=== PATIENT | male | born 1960 | race Caucasian/White ===

== ENCOUNTER 2022-08-18 15:27 | Outpatient (CLI) | payer BC, SELFPAY ==
[2022-08-18 10:00] LABS: Albumin* 4.3 g/dL (3.3-5.0); Chloride* 106 mmol/L (96-114); Potassium* 4.1 mmol/L (3.6-5.1); Sodium* 140 mmol/L (135-149)
[2022-08-18 10:02] LABS: Cholesterol* 157 mg/dL (90-199); Creatinine* 0.8 mg/dL (0.5-1.5); Estimated Glomerular Filt Rate 100 ml/min
[2022-08-18 10:03] LABS: Alanine Aminotransferase* 18 U/L (4-50); Alkaline Phosphatase* 101 U/L (40-150); Aspartate Amino Transferase* 21 U/L (12-35); Bilirubin Total* 0.6 mg/dL (0.1-1.5); Blood Urea Nitrogen* 25 mg/dL (7-30); Carbon Dioxide* 25 mmol/L (20-32); Glucose* 81 mg/dL (60-115); Total Protein* 6.6 g/dL (6.0-8.3); Triglycerides* 98 mg/dL (40-149)
[2022-08-18 10:04] LABS: Calcium* 8.8 mg/dL (8.4-10.6); HDL Cholesterol* 87 mg/dL (>=40); LDL Cholesterol Calculated 50 mg/dL (<100)
[2022-08-18 10:33] LABS: PSA Screen* 2.09 ng/mL (0.10-4.00)
== END 2022-08-18 15:28 | disposition home or self-care (01) ==
PROVIDERS: PCP Surgery; Visit Provider Internal Medicine
DX: I10 Essential (primary) hypertension (principal); Z13.6 Encounter for screening for cardiovascular disorders; Z12.5 Encounter for screening for malignant neoplasm of prostate
CPT/HCPCS: 80053; 80061; 84153

== ENCOUNTER 2023-06-16 17:00 | Outpatient (RCR) | payer BC, SELFPAY | END 2023-08-05 11:12 | disposition home or self-care (01) | PROVIDERS: PCP Surgery; Visit Provider Student in an Organized Health Care Education/Training Program | DX: M54.2 Cervicalgia (principal); M79.2 Neuralgia and neuritis, unspecified; R29.3 Abnormal posture; R53.1 Weakness; Z74.09 Other reduced mobility; Z51.89 Encounter for other specified aftercare | CPT/HCPCS: 97110; 97140; 97162 ==

== ENCOUNTER 2024-12-05 09:38 | Day surgery (SDC) | payer BC, SELFPAY ==
[2024-12-05] VITALS (30 sets, daily range): BP systolic 102–151; BP diastolic 67–105; PULSE 49–90; RESP 12–18; TEMP 36–36.9; O2SAT 94–99; BMI 26.5
--- OUTSIDE RECORDS SUMMARY | 2024-12-05 09:41 | XMS_ITS | Clinical Summary ---
Author Organization [facility] Address [address] [place] [address] Care Team Providers Care Plisse Machine Operator Helper Name Role Phone Elsewhere, Pcp Primary Care Provider Unavailabl e Source Comments Patient records contain information from all sites at [facility]. For routine questions regarding patient records, call [phone] during business hours, M-F 8:00 AM - 5:00 PM Central Time. Record requests for emergency care only can be directed to [phone] at any time.[facility] Allergies No known active allergies Medications * This document contains information received from the source organization and may not represent a complete record from that organization. losartan (COZAAR) 100 mg tablet Take 100 mg by mouth every morning. 8 Active rosuvastatin (CRESTOR) 10 mg tablet Take 10 mg by mouth every morning. 8 Active triamcinolone (KENALOG) 0.1 % cream Apply 1 application topically 2 (two) times a day. Apply to rash of back BID PRN rash/itching for up to two weeks, then 3 days of the week as needed thereafter Active acetaminophen (TYLENOL) 500 mg tablet Take 2 tablets (1,000 mg total) by mouth every 6 (six) hours. 9 Active traMADol (ULTRAM) 50 mg tabletIndication s:Prolonged Acute Pain/Traumatic Injury Take 1 tablet (50 mg total) by mouth every 6 (six) hours as needed for mild pain or score 1-3 of 10 Indications: Prolonged Acute Pain/Traumatic Injury. 30 tablet 9 Active sildenafiL (VIAGRA) 50 mg tablet TK 1 T PO 1 HOUR PRIOR TO INTERCOURSE PRN [address] tablet TAKE 1 TABLET BY MOUTH TWICE DAILY. START MEDICATION AFTER COMPLETING XARELTO 1 Active alendronate (FOSAMAX) 70 mg tablet Take 70 mg by mouth over 168 hr. 3 Active folic acid 1 mg tabletIndication s:Arthritis Inflammatory (HCC) Take 1 tablet (1,000 mcg total) by mouth daily. 90 tablet 3 5 Active methotrexate (TrexalL) 2.5 mg tabletIndication s:Arthritis Inflammatory (HCC) Take 10 tablets (25 mg total) by mouth once a week. 120 tablet 3 5 10/20/19 26 Active omeprazole (PriLOSEC) [address] capsuleIndicatio ns:Arthritis Rheumatoid (HCC) Take 2 capsules (40 mg total) by mouth daily. 180 capsule 3 5 Active ibuprofen 800 mg tabletIndication s:Osteoarthritis Take 1 tablet (800 mg total) by mouth 4 (four) times a day with meals and bedtime. Take with food 360 tablet 3 5 Active upadacitinib (Rinvoq) 15 mg 24 hr tabletIndication s:Arthritis Rheumatoid (HCC) Take 1 tablet (15 mg total) by mouth daily. 90 tablet 1 5 10/20/19 26 Active Active Problems Problem Noted Date Diagnosed Date Arthrodesis Status 11/29/2018 Dysfunction Posterior Tibial Tendon 11/24/2018 Hyperlipidemia 11/24/2018 Hypertension Essential Primary 09/06/2018 Osteoarthritis 09/06/2018 Arthritis Rheumatoid 01/12/2018 Resolved Problems Problem Noted Date Diagnosed Date Resolved Date High Risk Medication 09/06/2018 019 Encounters Date Type Department Care Team Description 10/20/2024 3:30 PM BEAUTY OPERATOR APPRENTICE Telemedicine Division of Rheumatology in [place], [place] [address] [place] [address] Thomas Crawford P.A.-C., M.S. Arthritis Rheumatoid (HCC) (Primary Dx); Arthritis Inflammatory (HCC); Osteoarthritis 09/21/2024 Clinical Communication Division of Rheumatology in [place], [place] [address] [place] [address] Thomas Crawford P.A.-C., M.S. Lab Monitoring 09/19/2024 Refill Division of Rheumatology in [place], [place] [address] [place] [address] Thomas Crawford P.A.-C., M.S. Med Refill from Last 3 Months Family History Medical History Relation Name Comments Leukemia Father jackie Stratton chronic myelomo noytic lewkemia Other cancer Father jackie Stratton blood type. Prostate cancer Father jackie Stratton Ovarian cancer Mother suleman Chowdhury Other cancer Sister 1 hallie 55 unknown Coronary artery disease Sister 2 ivory 60 Hypertension Sister 2 ivory 60 Relation Name Status Comments Father jackie Stratton Mother suleman Chowdhury Sister 1 hallie 55 Sister 2 ivory 60 Social History Tobacco Use Types Packs/Day Years Used Date Smoking Tobacco: Former Cigarettes 1.5 23 0 03/19/1978 - 03/19/2001 Passive Smoke Exposure: Past Smokeless Tobacco: Never Alcohol Use Standard Drinks/Week Comments No 0 (1 standard drink = 0.6 oz pur e alcohol) [facility] [employer] Answer Date Recorded In the past 12 months has e electric, gas, oil, or water [employer] threatened to shut off services in your home? Patient declined 02/16/2024 Humiliation, Afraid, Rape, and Kick questionnair e Answer Date Recorded Within the last year, have y ou been afraid of your partner or ex-partner? No 01/31/2023 Within the last year, have y ou been humiliated or emotionally abused in other ways by your partner or ex-partner? No Within the last year, have y ou been kicked, hit, slapped, or otherwise physically hurt by your partner or ex-partner? No 01/31/2023 Within the last year, have y ou been raped or forced to have any kind of sexual activity by your partner or ex-partner? No 01/31/2023 Social Connection and Isolation Panel [NHANES] A nswer Date Recorded In a typical week, how many times do you talk on the phone with family, friends, or neighbors? Three times a week 01/31/2023 How often do you get togethe r with friends or relatives? Once a week 01/31/2023 How often do you attend chur ch or mandaeism services? Patient declined 01/31/2023 Do you belong to any clubs o r organizations such as latter day groups, unions, fraternal or athletic groups, or school groups? Patient declined 01/31/2023 How often do you attend meet ings of the clubs or organizations you belong to? Patient declined 01/31/2023 Are you , , di vorced, , never , or living with a partner? 01/31/2023 AUDIT-C Answer Date Recorded Q1: How often do you have a drink containing alc ohol? Never 01/31/2023 Average Number of Drinks Not on file 023 Frequency of Binge Drinking Not on file 01/17 Overall Financial Resource Strain (CARDIA) Answe r Date Recorded How hard is it for you to pa y for the very basics like food, housing, medical care, and heating? Not very hard 01/31/2023 [facility] - Occupational Stress Questionnaire Answer Date Recorded Do you feel stress - tense, restless, nervous, or anxious, or unable to sleep at night because your mind is troubled all the time - these days? Patient declined 01/31/2023 Exercise Vital Sign Answer Date Recorde d On average, how many days pe r week do you engage in moderate to strenuous exercise (like a brisk walk)? Patient declined On average, how many minutes do you engage in exercise at this level? Patient declined 02/16/2024 Hunger Vital Sign Answer Date Recorded Within the past 12 months, y ou worried that your food would run out before you got the money to buy more. Patient declined Within the past 12 months, t he food you bought just didn't last and you didn't have money to get more. Patient declined PRAPARE - Transportation Answer Date Re corded In the past 12 months, has l ack of transportation kept you from medical appointments or from getting medications? No 01/19 In the past 12 months, has l ack of transportation kept you from meetings, work, or from getting things needed for daily living? No 02/16/2024 Nutrition Answer Date Recorded On average, how many serving s of fruits and vegetables do you eat per day (serving size is equal to 1 cup or approximately the size of a tennis ball)? 0-2 02/16/2024 Dental Answer Date Recorded Dental: Regular Dentist Yes 02/16/20 Employment Answer Date Recorded Employment status Employed and actively working without restrictions 02/16/2024 Housing Stability Answer Date Recorded What is your living situation today? I have a [facility] place to live 02/16/2024 Education Answer Date Recorded What is the highest level of school you have completed or the highest degree you have received? Some college, no degree 11/04/2021 Sex and Gender Information Value Date Recorded Sex Assigned at Male 03/12/2018 9:28 PM CDT Legal Sex Male 5:41 AM BEAUTY OPERATOR APPRENTICE Gender Identity Male 03/19/2019 9:34 PM CDT Sexual Orientation Straight 03/19/2019 9: 34 PM CDT Last Filed Vital Signs Vital Sign Reading Time Taken Comments Blood Pressure 131/81 02/17/2024 11:11 AM CDT Pulse 61 02/17/2024 11:11 AM CDT Temperature 36.5 C (97.7 F) 02/17/2024 11:11 AM CDT Respiratory Rate 17 11/30/2018 1:57 PM BEAUTY OPERATOR APPRENTICE Oxygen Saturation 96% 11/30/2018 1:57 PM BEAUTY OPERATOR APPRENTICE Inhaled Oxygen Concentration - - Weight 87 kg (191 lb 12.8 oz) 02/17/2024 11:11 A M CDT Height 180 cm (5' 10.87) 02/17/2024 11:11 AM CD T Body Mass Index 26.85 02/17/2024 11:11 AM CDT Plan of Treatment Health Maintenance Due Date Last Done Comments CT Colonography 1960 Cologuard 1960 Colonoscopy 1960 Colorectal Cancer Surveillance 1960 HIV Screening 1960 Pneumococcal vaccine (50+ years) (1 of 2 - PCV) 1979 Zoster Vaccines (1 of 2) 1979 RSV vaccine - (32-36 weeks) or 60+ years (1 - Risk 60-74 years 1-dose series) 2020 Potassium Level 03/21/2023 03/21/2022, 01/28/2021 Sodium Level 03/21/2023 03/21/2022 COVID-19 Vaccine ( season) 2024 03/21/2022, 06/04/2021, 01/16/2021, Additional history exists Influenza Vaccine (#1) 2024 08/21/2022 Depression Screening (Annual PHQ-2) 10/19/2024 Office Visit for Blood Pressure Check / Re-check 02/16/2025 02/17/2024 Fasting Glucose for Diabetes Screening 03/21/2025 03/21/2022 Creatinine Level (Kidney Function Test) 08/19/2025 08/19/2024, 05/20/2024, 02/17/2024, Additional history exists DTaP,Tdap,and Td Vaccines (3 - Td or Tdap) 08/25/2027 08/25/2017, 01/20/2006 Lipid (Cholesterol) Screening 04/06/2028 04/06/2023, 03/21/2022 HPV Vaccines Aged Out No longer eligi ble based on patient's age to complete this topic IPV Vaccines Aged Out No longer eligi ble based on patient's age to complete this topic Medical Devices Implanted Type [facility] Consultant Device Identifier Shelf Expiration Date Model / Serial / Lot Grft Grf Dbm Pst 1 - [id number] - [id number] Implanted:Qty : 1 on 11/29/2018 at [facility] Bone or Tissue Left: Foot [employer] 06/16/2020 [id number] / [id number] / Sc[address] Pthrd Nlck Natalya 6.7x50 - [id number] Implanted:Qty : 1 on 11/29/2018 at [facility] Hardware e.g. pins/screws/ rods Left: Foot Arthrex AR-8967-1 850 / / Scrw [address] Pthrd Nlck Natalya 6.7x75 - [id number] Implanted:Qty : 1 on 11/29/2018 at [facility] Hardware e.g. pins/screws/ rods Left: Foot Ar[employer]rex AR-8967-1 875 / / Scrw St Pthrd Nlck Natalya 6.7x85 - [id number] Implanted:Qty : 1 on 11/29/2018 at [facility] [employer] Hardware e.g. pins/screws/ rods Left: Foot Arthrex AR-8967-1 885 / / Scrw St Pthrd Natalya 4.5x45 - [id number] Implanted:Qty : 1 on 11/29/2018 at [facility] [employer] Hardware e.g. pins/screws/ rods Left: Foot Arthrex AR-8945-4 5PT / / Hip Implant-2020 Implanted: (Quantity not on file) Hip Implant Right: Hip Knee Implant Knee Implant Left: Knee Knee Implant Knee Implant Right: Knee Mesh Or Patch Mesh or Patch Abdomen Description:Hernia implant a pprox 2019. Procedures Procedure Name Priority Date/Time Associated Diagnosis Comments CREATININE WITH EGFR, S/P Routine 08/19/2024 2:55 PM CDT Arthritis Rheumatoid (HCC) from Last 3 Months or Most Recently Relevant to Health Maintenance Results * Creatinine with Estimated GFR (08/19/2024 2:55 PM CDT) Creatinine 0.80 0.74 - 1.35 mg/dL 08/19/2024 6:42 PM CDT OWAT Estimated GFR (eGFR) >90 >=60 mL/min/BSA 08/19/2024 6:42 PM CDT OWAT Comment: Estimated GFR calculated using the 2020 CKD_EPI creatinine equation. Blood (Blood, Venous) 08/19/2024 2:55 PM CDT 08/19/2024 5:57 PM CDT us Thomas Crawford P.A.-C., M.S. LAB BLOOD ADD-ON Final Result [facility] [address] [place] [address], [place] OW[facility] [place] [address] [place] [address] from Last 3 Months or Most Recently Relevant to Health Maintenance Additional Health Concerns Infection Onset Date Last Indicated Protective Environment 02/04/2023 3 Insurance [facility] Advance Directives For more information, please contact: [phone] Documents on File Type Date Recorded Patient Ammunition And Explosives Handler Expl anation Advance Directives 11/29/2018 5:25 PM Heal th Care Directive Healthcare Agents on File Name Relationship Healthcare Agent Relationship Communication Norma Avalos Spouse Health Care Agent Ivory Tello Sister First Alternate Health Care Agent Care Teams Plisse Machine Operator Helper Relationship Specialty Start Date End Date Elsewhere, Pcp PCP - General Internal Medicine 02/04/23
--- OUTSIDE RECORDS SUMMARY | 2024-12-05 09:41 | XMS_ITS | Encounter Summary ---
Author Organization [facility] Address [address] [place] [id number] Care Team Providers Care Fruit Tester Name Role Phone Elsewhere, Pcp Primary Care Provider Unavailabl e Reason for Visit * Reason Onset Date Comments Lab Monitoring 09/21/2024 Encounter Details Date Type Department Care Team (Latest Contact Info) Description 09/21/2024 Clinical Communication Division of Rheumatology in [place], [place] [address] [place] [address] Thomas Crawford, P.A.-C., M.S. [address] [place] [phone] Lab Monitoring Social History Tobacco Use Types Packs/Day Years Used Date Smoking Tobacco: Former Cigarettes 1.5 23 0 03/19/1978 - 03/19/2001 Passive Smoke Exposure: Past Smokeless Tobacco: Never Alcohol Use Standard Drinks/Week Comments No 0 (1 standard drink = 0.6 oz pur e alcohol) [facility] Utilities Answer Date Recorded In the past 12 months has e [employer], gas, oil, or water company threatened to shut off services in your [...] 01/31/2023 How often do you attend chur or catholic services? Patient declined 01/31/2023 Do you belong to any clubs o r organizations such as yazidi groups, unions, fraternal or athletic groups, or [...] care, and heating? Not very hard 01/31/2023 [facility] - Occupational Stress Questionnaire Answer Date Recorded [...] your living situation today? I have a [facility] place to live 02/16/2024 Education Answer Date Recorded What is the highest level of school you have completed or the highest degree you have received? Some college, no degree 11/04/2021 Sex and Gender Information Value Date Recorded Sex Assigned at Male 03/12/2018 9:28 PM CDT Legal Sex Male 5:41 AM SYSTEM TECHNOLOGIST Gender Identity Male 03/19/2019 9:34 PM CDT Sexual Orientation Straight 03/19/2019 9: 34 PM CDT documented as of this encounter Miscellaneous Notes * Telephone Encounter - Chris Zamora - 09/21/2024 7:[address] Crawford! Pt is calling and stating that he is going to have a surgery on Dec 05. He would like to see you prior to the surgery. He is being told hat he has to stop his medication (Rinvoq, methotrexate) at least 2 weeks prior tohis surgery. Pt also states that he has monitoring labs performed periodically and his next due is on or around . So he was going to need to likely stop right before his labs. However when I look in his Active requests, there are no labs or visits ordered? Can you place these orders? Regards, Chris One last thing, pt is still waiting on his Med refill for Folic acid. EM TECHNOLOGIST documented in this encounter Plan of Treatment Not on file documented as of this encounter Visit Diagnoses Not on filedocumented in this encounter Additional Health Concerns Infection Onset Date Last Indicated Resolved Time Protective Environment 02/04/2023 02/04/2023 documented as of this encounter Care Teams Fruit Tester Relationship Specialty Start Date End Date Elsewhere, Pcp PCP - General Internal Medicine 02/04/23 documented as of this encounter
--- OUTSIDE RECORDS SUMMARY | 2024-12-05 09:41 | XMS_ITS | Clinical Summary ---
Author Organization [facility] Address [place], [place] [address] Care Team Providers Care Traveler Changer Name Role Phone Nick Macedo DO Primary Care Provider [phone] Allergies No known active allergies Medications traMADoL (ULTRAM) 50 mg tablet Take 50 mg by mouth every 6 hours if needed. 01/26/20 21 Active methotrexate (RHEUMATREX) 2.5 mg tablet Take 25 mg by mouth once weekly. 12/20/19 22 Active acetaminophen (TYLENOL EXTRA STRGTH) 500 mg tablet Three Times A Day Active ibuprofen (ADVIL; MOTRIN) 800 mg tablet 22 Active omeprazole (PRILOSEC) 20 mg Delayed-Release capsule Take 40 mg by mouth. 04/28/20 22 Active alendronate (FOSAMAX) 70 mg tabletIndications:Osteop enia, unspecified location Take 1 Tablet (70 mg) by mouth once a week in the morning. 45 Tablet 07/06/20 23 Active upadacitinib (Rinvoq) 15 mg extended release tablet Take 15 mg by mouth. 01/04/20 24 Active losartan (COZAAR) 100 mg tabletIndications:Hypert ension, unspecified type Take 1 Tablet (100 mg) by mouth once daily. 90 Tablet 3 01/19/20 24 Active sildenafil citrate (VIAGRA) 50 mg tabletIndications:Erecti le dysfunction, unspecified erectile dysfunction type Take 1 Tablet (50 mg) by mouth once daily if needed for Erectile Dysfunction . Take 30min to 4 hours before sexual activity. Max 100mg/24hr 30 Tablet 3 01/19/20 24 Active durable medical equipment (DME)Indications:Left hand pain,Hand numbness Quickfit wrist II,UNIV LT 1 Each 02/19/20 24 Active rosuvastatin (CRESTOR) 10 mg tabletIndications:Pure hypercholesterolemia TAKE 1 TABLET(10 MG) BY MOUTH AT BEDTIME 90 Tablet 1 07/05/20 24 Active Active Problems Problem Noted Date Diagnosed Date History of radiofrequency ab lation (RFA) procedure for cardiac arrhythmia 03/21/2022 Psoriatic arthritis 03/21/2022 Status post total replacement of right hip 03/21 Hx of melanoma of skin 01/28/2021 Hx of basal cell carcinoma 01/28/2021 Hx of squamous cell carcinoma of skin 01/28/2021 Hyperlipidemia 11/24/2018 Essential hypertension 09/06/2018 Arthritis, rheumatoid 01/12/2018 Adenomatous colon polyp 04/23/2015 Overview (04/23/2015): Colonoscopy 04/2015 multiple polyps repeat in 3 years Hypertension 03/15/2015 Osteoarthrosis, unspecified whether generalized or localized, unspecified site 04/25/2008 Overview (04/25/2008): Severe. Both knees. S/P ablation of atrial fibrillation Resolved Problems Problem Noted Date Diagnosed Date Resolved Date Paroxysmal atrial fibrillation 03/21/2022 04/06/2023 Encounters Date Type Department Care Team Description 11/29/2024 Telephone [facility] [address] [place] [address] Nick Macedo, Referral 10/31/2024 Telephone [facility] [address] [place] [address] Sadi Cruz, DPM orthotics 10/21/2024 Telephone [facility] [address] [place] [address] Sadi Cruz, KERRY Questions (Orthotics) 10/10/2024 Telephone [facility] [address] [place] [address] Sadi Cruz, KERRY DME Supply (Custom orthotics-revised ) 09/27/2024 Telephone [facility] [address] [place] [address] Sadi Cruz DPM Returning Call 09/19/2024 Telephone [facility] [address] [place] [address] Sadi Cruz DPM DME Supply (Custom orthotics ) from Last 3 Months Immunizations Name Administration Dates Next Due COVID-19 vaccine (Moderna 100mcg/0.5mL) PF, MDV 01/16/2021,12/18/2020 COVID-19 vaccine (Pfizer-Bio NTech 30mcg/0.3mL) 12YO+ RENEA-SUCROSE PF, MDV 03/21/2022 Hepatitis A (Adult) 01/20/2006 Influenza, IIV4 08/21/2022 Tdap 08/25/2017,01/20/2006 Family History Medical History Relation Name Comments Cancer-prostate Father Cancer Mother uterine Cancer Paternal Grandfather Cancer Paternal Grandmother Hypertension Sister 1 Other Sister 2 MS Relation Name Status Comments Father Mother Paternal Grandfather Paternal Grandmother Sister 1 Sister 2 Social History Tobacco Use Types Packs/Day Years Used Date Smoking Tobacco: Former Smokeless Tobacco: Never Tobacco Cessation:Counseling Given: Yes Alcohol Use Standard Drinks/Week Comments Not Currently 7 (1 standard drink = 0.6 oz pur e alcohol) a drink or two daily PHQ-2 Answer Date Recorded PHQ-2 TOTAL SCORE 0 04/06/2023 Social Connections Answer Date Recorded Frequency of Communication with Friends and Fami ly Not on file 10/19/2021 Financial Resource Strain Answer Date R ecorded Difficulty of Paying Living Expenses Not on file 10/19/2021 Difficulty of Paying Living Expenses Not on file 10/19/2021 Sex and Gender Information Value Date Recorded Sex Assigned at Not on file Legal Sex Male 5:46 AM [employer] Gender Identity Not on file Sexual Orientation Not on file Obstetrics History Last Filed Vital Signs Vital Sign Reading Time Taken Comments Blood Pressure 121/83 08/30/2024 3:44 PM [employer] Pulse 57 08/30/2024 3:44 PM [employer] Temperature 36.8 C (98.2 F) 10/19/2022 11:32 AM [employer] Respiratory Rate 18 10/19/2022 11:32 AM [employer] Oxygen Saturation 94% 08/30/2024 3:44 PM [employer] Inhaled Oxygen Concentration - - Weight 89 kg (196 lb 3.2 oz) 01/19/2024 3:52 PM CDT Height 177.3 cm (5' 9.8) 01/19/2024 3:52 PM CDT Body Mass Index 28.31 01/19/2024 3:52 PM CDT Plan of Treatment Health Maintenance Due Date Last Done Comments HIV for age 15-65 1975 Zoster (shingles) series for age 50+ (1 of 2) 1979 Pneumococcal series for age 50+ (1 of 1 - PCV) 2010 RSV vaccine for adults or (1 - Risk 60-74 years 1-dose series) 2020 Depression screening for age 12+ 04/06/2024 04/06/2023, 03/21/2022, 01/29/2021, Additional history exists COVID-19 vaccine series ( season) 2024 03/21/2022, 06/04/2021, 01/16/2021, Additional history exists Influenza for age 50-64 06/19/2024 08/21/2022 BMI (ht and wt on same day) for age 18+ 01/18/2025 01/19/2024, 04/06/2023, 03/21/2022, Additional history exists Colonoscopy through age 75 04/20/2025 04/20/2015, Tetanus booster 08/25/2027 08/25/2017, 01/20/2006 Lipids for age 45-75 04/06/2028 04/06/2023, 03/21/2022, 04/20/2015, Additional history exists Tdap Completed 08/25/2017, 01/20/2006 Hepatitis C screening for ag e 18-79 Completed 03/21/2022 Procedures Procedure Name Priority Date/Time Associated Diagnosis Comments LIPID PANEL W REFLEX MEASURED LDL Routine 04/06/2023 4:46 PM CDT Lipid screening ANTI HCV Routine 03/21/2022 5:00 PM CDT Need for hepatitis C screening test from Last 3 Months or Most Recently Relevant to Health Maintenance Results * LIPID PANEL W REFLEX MEASURED LDL (04/06/2023 4:46 PM CDT) CHOLESTEROL,TOTAL 140 100 - 199 mg/dL 04/07/2023 7:17 PM CDT [facility] Comment: Cholesterol, Total Reference Ranges Desirable <200 mg/dL Borderline 200-239 mg/dL High >=240 mg/dL TRIGLYCERIDES 63 <150 mg/dL 04/07/2023 7:17 PM CDT [facility] HDL CHOLESTEROL 56 >40 mg/dL 7:17 PM CDT [facility] NON-HDL CHOLESTEROL 84 <145 mg/dl 04/07/2023 7:17 PM CDT [facility] CHOL/HDL RATIO 2.50 <4.50 04/07/2023 7:17 PM CDT [facility] LDL CHOLESTEROL 71 <=130 mg/dL 04/07/2023 7:17 PM CDT [facility] VLDL CHOLESTEROL 13 <=30 mg/dL 04/07/2023 7:17 PM CDT [facility] PROVIDER ORDERED STATUS RANDOM 04/07/2023 7:17 PM CDT [facility] Blood BLOOD SPECIMEN / Unknown Venipuncture / Unknown 04/06/2023 4:46 PM CDT 04/06/2023 4:50 PM CDT us Radhai Remington DO CHEMISTRY Final Result [facility] [address] [place] [address], [place] * ANTI HCV (03/21/2022 5:00 PM CDT) HEPATITIS C ANTIBODY Non-React amador Non-React amador 03/21/2022 10:17 PM CDT [facility] Comment:Antibodies to HCV no t detected; does not exclude the possibility of exposure to HCV. Blood BLOOD SPECIMEN / Unknown Venipuncture / Unknown 03/21/2022 5:00 PM CDT 03/21/2022 5:02 PM CDT us Jairon Piper MD SEND OUTS Final Resu lt [facility] [address] [place] [address], [place] from Last 3 Months or Most Recently Relevant to Health Maintenance Insurance [facility] AD[facility] Advance Directives * Full Code (Latest Code Status on File) Date Activated Date Inactivated Comments 05/15/2016 7:41 AM 05/15/2016 10:24 AM * Full Code Date Activated Date Inactivated Comments 04/25/2016 7:30 AM 04/26/2016 1:21 PM * Full Code Date Activated Date Inactivated Comments 03/20/2016 7:16 AM 03/20/2016 8:29 PM Care Teams Traveler Changer Relationship Specialty Start Date End Date Nick Macedo DO [address] [facility] [place] [address] PCP - General Family Practice 03/18/24
[2024-12-05] MEDS: ACETAMINOPHEN 500 MG TABLET 1000 MG PO ×3 (10:09→22:51)
[2024-12-05] MEDS: OXYCODONE (CR) 10 MG TAB.ER.12H PO (10:10)
--- NOTE | 2024-12-05 10:12 | W.PM.H&PU ---
History & Physical Update History & Physical Update H&P Reviewed and patient assessed: No changes noted
[2024-12-05] MEDS: SODIUM CHLORIDE 0.9 % (FLUSH) 10 ML SYRINGE IVF (10:21)
[2024-12-05] MEDS: LACTATED RINGERS 1000 ML 1,000 ML 100 ML IV (10:21)
--- NOTE | 2024-12-05 11:01 | SUR.PREOP ---
TIME?OUT:?1102 PT/RN/MDA?VERIFICATION?OF?SURGICAL?SITE,?PROCEDURE,?AND?CONSENT OBTAINED?PRIOR?TO?INVASIVE?PROCEDURE.
[2024-12-05] MEDS: MIDAZOLAM HCL 1 MG/ML inj IVP (11:04)
[2024-12-05] MEDS: fentaNYL 100 MCG/2 ML inj IVP (11:04)
--- NOTE | 2024-12-05 11:15 | CRLHL7_ITS ---
For Patients: As a result of the Century Cures Act, medical imaging exams and procedure reports are released immediately into your electronic medical record. You may view this report before your referring provider. If you have questions, please contact your health care provider. Fluoroscopy was provided for the surgical service during left hip arthroplasty. One spot film acquired. 32.5 seconds of fluoroscopy time utilized. Spot films demonstrate a left total hip arthroplasty. Dictated by Loki Navarro MD @ 12/06/2024 7:09:24 AM (Electronically Signed)
--- NOTE | 2024-12-05 11:27 | P.ANES_ITS ---
Anesthesia Charges Start Date/Time Anesthesia Start Date: 12/05/24 Anesthesia Start Time: 11:31 Stop Date/Time Anesthesia Stop Date: 12/05/24 Anesthesia Stop Time: 14:14 Coding CPT Codes CPT Codes: ANESTH HIP ARTHROPLASTY - 96282 ([id number]) P3 - PATIENT W/SEVERE SYS DISEASE, QK - NURSE EDUCATOR 2-4 CNCRNT ANES PROC, QX - BOOTH SUPERVISOR SVC W/ MD MED DIRECTION
--- NOTE | 2024-12-05 11:27 | W.PM.NB ---
Nerve Block Nerve Block Time Seen by Provider: 11:08 Date Seen: 12/05/24 Type of block requested by surgeon for post-operative analgesia: MARÍA/LFCN Side: left Time out performed: Yes Verification of patient name: Yes Verification of date of : Yes Site marking: site marked Name of person performing procedure: Dayron Continuous monitoring Was continuous monitoring of O2 sat, B/P, quality assurance monitor, recorded every 15 minutes?: Yes Procedure Checklist: sterile prep, needles and gloves Ultrasound guided. Images saved: Yes Medications given in 5ml increments after negative aspiration: Ropivicaine %: 0.5 mL: 30 Needle gauge: 20 Precedex (mcg): 25 Patient tolerated procedure well: Yes Additional comments: Needle noted below psoas tendon needle noted adjacent to LFCN Block Charges Block Charge (with Pro Fee): Other Periph Nerve Block Use of Ultrasound Machine for Block: Yes- US Guidance/pain block
--- NOTE | 2024-12-05 11:27 | W.ANESCHARGE ---
Anesthesia Charges Start Date/Time Anesthesia Start Date: 12/05/24 Anesthesia Start Time: 11:31 Stop Date/Time Anesthesia Stop Date: 12/05/24 Anesthesia Stop Time: 14:14 Coding CPT Codes CPT Codes: ANESTH HIP ARTHROPLASTY - 09599 ([id number]) P3 - PATIENT W/SEVERE SYS DISEASE, QK - TECHNICAL TRAINING COORDINATOR 2-4 CNCRNT ANES PROC, QX - DIRECTOR COMMUNICATIONS SVC W/ MD MED DIRECTION
[2024-12-05] MEDS: TRANEXAMIC ACID 100 MG/ML INJ 1000 MG IV (12:05)
[2024-12-05] MEDS: CEFAZOLIN 2 GM in 0.9 % SODIUM CHLORIDE Mini-bag 100 ML IVPB ×2 (12:05→18:32)
--- NOTE | 2024-12-05 13:25 | P.ORPRC_ITS ---
Procedure Note Date of procedure: 12/05/24 Procedure: PREOPERATIVE DIAGNOSIS: 1. Left hip osteoarthritis, severe, primary POSTOPERATIVE DIAGNOSIS: 1. Left hip osteoarthritis, severe, primary PROCEDURE: 1. Left total hip arthroplasty-anterior approach 2. 74833 - intraoperative fluoroscopy up to 1 hour. SURGEON: Almas Mcfadden MD. DEPUTY CHIEF COUNSEL: Jairon Valero PA-C; KWAME Tomlin - Of note, a skilled accounting assistant was critical for this case to aid in patient positioning, tissue retraction, limb manipulation/positioning, dislocation/relocation, patient safety, and closure. ANESTHESIA: Spinal anesthetic EBL: 250 mL IMPLANTS: DePuy J&J uncemented total hip [place] cup size 56, hole eliminator, +4 neutral liner Actis stem, high offset, size 9 +1.5 mm ceramic 36 mm head. COMPLICATIONS: None evident INDICATIONS: The patient is a pleasant 64-year-old male who has experienced severe left hip pain and difficulty bearing weight. Workup included x-rays which revealed severe osteoarthrosis in the hip. Given the deformity, the dys function, and the pain, as well as the failure of nonoperative management, recommendation was made for surgery. FINDINGS: Full-thickness chondral loss diffusely throughout the femoral head and acetabulum. Osteophytes around the femoral head/neck junction and perimeter of the acetabulum. Moderate effusion upon entering the joint. DESCRIPTION OF PROCEDURE: Following a thorough discussion of risks, benefits, and alternatives consent was obtained and the left hip was marked. The patient was brought to the operating room and placed supine on the operating table. Induction of anesthesia was undertaken. 2 g IV Ancef and 1 g tranexamic acid was administered within 1 hr of incision preoperatively. Proper time-out was performed identifying proper patient, site, procedure. The operative extremity was prepped and draped in the appropriate sterile fashion using ChloraPrep after the patient was positioned on the [place] table with head in neutral alignment and all bony prominences well padded. C-arm fluoroscopic imaging was utilized to confirm proper pelvis rotation and position, and to get true AP films of both the contralateral left, and the affected left hip. This is for comparison. A longitudinal incision was made starting approximately 1 cm distal to the ASIS, and 3-4 cm lateral. The incision was extended distally aiming toward the lateral border the patella. Sharp incision through skin and bovie cautery through the subcutaneous tissue allowed identification of the TFL fascia. This was sharply divided, and the fascia bluntly released from the muscle fibers as we dissected medial. Upon coming to the medial border, we were able to retract the TFL laterally, and penetrated the deeper fascia and identify the crossing circumflex vessels. These were ligated/cauterized. The rectus was elevated from the capsule, and retractors placed laterally and medially along the femoral neck to help with visualization of the capsule. We then performed an inverted T capsulotomy. The capsule was tagged for later repair. Retractors were placed inside the capsule. The femoral neck was visualized after releasing medially down to the lesser trochanter, along the saddle laterally, and up onto the acetabulum. The femoral neck cut was made in line with our preoperative templating. The head was removed in a single piece, and sized. We turned our attention to acetabular preparation. Initially, the labrum was resected from around the perimeter, the pulvinar was excised, allowing us to visualize the false wall. We started the reaming with a 43 mm reamer. This was medialized down to the true wall. We then enlarged our reamers sequentially up to one size less than the selected cup size. We trialed at the same size and found it to have an excellent fit. The selected cup was then opened, inserted, and impacted in line with the goal of 40-45? of abduction, and 20-25? of anteversion. This was confirmed on C-arm fluoroscopic imaging to be in the appropriate/goal position. Once the cup was placed we placed a hole eliminator and a liner consistent with preop planning. Attention was turned to the femoral preparation. The limb was extended, externally rotated, and adducted. The posteromedial capsule was released, as retractors were placed allowing excellent access to the proximal femur. Initially a box blank machine feeder was followed by canal finder followed by various bro aches. We broached sequentially up to size noted above, found it to have excellent rotational control, and trialing various heads and necks, revealed that appropriate neck offset, and the above noted head size provided the greatest stability, and moravian of length, and offset. C-arm fluoroscopic imaging confirmed position of the stem, as well as leg lengths, which were compared with the pre procedure all fluoroscopic images. Trial implants were removed, the real femoral stem inserted, as was the ceramic head. After reducing, the leg was placed through range of motion and stability was confirmed anterior, posterior, and lateral. A 3 min Betadine soak was then performed, and thorough irrigation with normal saline followed. Closure of the capsule was performed with #1 PDS. Bleeding was confirmed to be controlled at this stage, and the TFL fascia was closed with #0 strata fix. Subcutaneous, and subcuticular closure was performed with 2-0 Vicryl and 4-0 Monocryl, respectively. Dressings were applied, and the patient was awoken from anesthesia and transferred the PACU in stable condition. A skilled accounting assistant was critical for this case to aid in patient positioning, tissue retraction, proximal femur exposure, limb manipulation/positioning, dislocation/relocation, patient safety, and closure. PLAN: 1. Weight bear as tolerated operative extremity. 2. 23 hr perioperative antibiotics. 3. Ice. 4. PT/OT consults for ambulation assistance/mobility education. 5. Social work consult for discharge planning. 6. DVT prophylaxis with at SCDs and Xarelto x5 days followed by aspirin for a total of 1 month..
--- NOTE | 2024-12-05 13:25 | CRLHL7_ITS ---
For Patients: As a result of the Cures Act, medical imaging exams and procedure reports are released immediately into your electronic medical record. You may view this report before your referring provider. If you have questions, please contact your health care provider. Indication: Postop JASON. Technique: Pelvis and bilateral hip 3 view. Comparison: X-ray pelvis September 2024 Findings: Interval postoperative changes of left total hip arthroplasty. Processes are appropriately positioned and well aligned. Left hip soft tissue swelling and emphysema. No periprosthetic fracture or loosening. Unchanged alignment of the right total hip arthroplasty. Impression: Interval postoperative changes of left total hip arthroplasty. Dictated by Alesia Villanueva MD @ 12/06/2024 7:33:17 AM (Electronically Signed)
--- NOTE | 2024-12-05 14:15 | P.ANES_ITS ---
Anesthesia Charges Start Date/Time Anesthesia Start Date: 12/05/24 Anesthesia Start Time: 11:31 Stop Date/Time Anesthesia Stop Date: 12/05/24 Anesthesia Stop Time: 14:14 Coding CPT Codes CPT Codes: ANESTH HIP ARTHROPLASTY - 76229 ([id number]) P3 - PATIENT W/SEVERE SYS DISEASE, QK - NETWORKING TECHNOLOGY INSTRUCTOR 2-4 CNCRNT ANES PROC, QX - SIGN MAINTENANCE SVC W/ MD MED DIRECTION
--- NOTE | 2024-12-05 14:15 | W.ANESCHARGE ---
Anesthesia Charges Start Date/Time Anesthesia Start Date: 12/05/24 Anesthesia Start Time: 11:31 Stop Date/Time Anesthesia Stop Date: 12/05/24 Anesthesia Stop Time: 14:14 Coding CPT Codes CPT Codes: ANESTH HIP ARTHROPLASTY - 40050 ([id number]) P3 - PATIENT W/SEVERE SYS DISEASE, QK - DIRECTOR OF MATERIALS MANAGEMENT 2-4 CNCRNT ANES PROC, QX - SUPERVISOR BRAIDING SVC W/ MD MED DIRECTION
[2024-12-05] MEDS: fentaNYL 100 MCG/2 ML inj 50 MCG IVP (14:25)
[2024-12-05] MEDS: HYDROmorphone 0.5 mg/0.5 ml inj IVP ×2 (14:38→15:05)
[2024-12-05] MEDS: LACTATED RINGERS 1000 ML 1,000 ML 30 ML IV (14:45)
[2024-12-05] MEDS: hydrOXYzine pamoate 25 MG CAPSULE PO ×2 (16:13→20:32)
[2024-12-05] MEDS: OXYCODONE 5 MG TABLET PO ×4 (16:13→22:52)
[2024-12-05] MEDS: LACTATED RINGERS 1000 ML 1,000 ML 75 ML IV (17:09)
[2024-12-05] MEDS: SENNOSIDES 1 TAB TABLET 2 TAB PO (20:19)
--- NOTE | 2024-12-05 22:40 | PC.NURSE ---
End of Shift: Patient pleasant and cooperative. Afebrile. Dressing to left hip C/D/I. CMS intact. Up to chair and walking in hallway with 1 assist, walker and gait belt. Rating pain in hip up to 6-7/10 and PRN Oxycodone and Vistaril given. Tolerating regular diet with no nausea.
--- NOTE | 2024-12-05 22:51 | P.IMCN_ITS ---
Date of Consult Patient: [facility] Patient Consult date: 12/05/24 Requesting Physician: Orthopedics Primary Care Provider: Rolan Dan MD Consult Narrative Reason for consult: post-op support for HTN, RA, HLD Narrative: Thomas Tello is a 64 year old man with longstanding history of psoriatic arthritis, rheumatoid arthritis, osteoarthritis. He has had multiple prior joint replacements including his right hip. He presents for elective left total hip arthroplasty at this time. Procedure is undertaken successfully today with estimated blood loss of 250 mL. Pain is adequately managed at this time. Does take rosuvastatin routinely for atrial fibrillation. Review of Systems Status of ROS: Reports: 6 or more systems reviewed and unremarkable except as noted in History and below [facility] Medical History Atrial fibrillation ?I48.91 - Unspecified atrial fibrillation (ICD-10) Atrial fibrillation with rapid ventricular response ?I48.91 - Unspecified atrial fibrillation (ICD-10) Chest pain ?R07.9 - Chest pain, unspecified (ICD-10) Hypertension ?I10 - Essential (primary) hypertension (ICD-10) Lumbar degenerative disc disease ?M51.36 - Other intervertebral disc degeneration, lumbar region (ICD-10) Pes planus of both feet ?M21.41 - Flat foot [pes planus] (acquired), right foot (ICD-10) ?M21.42 - Flat foot [pes planus] (acquired), left foot (ICD-10) Closed fracture of right distal fibula ?S82.831A - Other fracture of upper and lower end of right fibula, initial encounter for closed fracture (ICD-10) Osteoarthritis of right ankle ?M19.071 - Primary osteoarthritis, right ankle and foot (ICD-10) Fracture of second metatarsal bone of left foot ?S92.322A - Displaced fracture of second metatarsal bone, left foot, initial encounter for closed fracture (ICD-10) Osteoarthritis of left hip ?M16.12 - Unilateral primary osteoarthritis, left hip (ICD-10) Fatigue ?R53.83 - Other fatigue (ICD-10) Rheumatoid arthritis ?M06.9 - Rheumatoid arthritis, unspecified (ICD-10) Psoriatic arthritis ?L40.50 - Arthropathic psoriasis, unspecified (ICD-10) History of squamous cell carcinoma of skin ?Z85.828 - Personal history of other malignant neoplasm of skin (ICD-10) History of malignant melanoma of skin ?Z85.820 - Personal history of malignant melanoma of skin (ICD-10) History of basal cell carcinoma ?Z85.828 - Personal history of other malignant neoplasm of skin (ICD-10) History of atrial fibrillation ?Z86.79 - Personal history of other diseases of the circulatory system (ICD- 10) History of alcohol abuse ?F10.11 - Alcohol abuse, in remission (ICD-10) Surgical History History of total left hip replacement (12/05/24) ?Z96.642 - Presence of left artificial hip joint (ICD-10) S/P right knee arthroscopy (05/06/05) ?Z98.890 - Other specified postprocedural states (ICD-10) Status post total left knee replacement (~2007) ?Z96.652 - Presence of left artificial knee joint (ICD-10) Status post total right knee replacement (~2007) ?Z96.651 - Presence of right artificial knee joint (ICD-10) H/O ankle fusion (~11/2018) ?Z98.1 - Arthrodesis status (ICD-10) 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) ?Z96.641 - Presence of right artificial hip joint (ICD-10) Status post ablation of atrial fibrillation ?Z98.890 - Other specified postprocedural states (ICD-10) ?Z86.79 - Personal history of other diseases of the circulatory system (ICD- 10) History of radiofrequency ablation (RFA) procedure for cardiac arrhythmia ?Z98.890 - Other specified postprocedural states (ICD-10) Social History Narrative: Daily consumption of alcohol What is your current living situation?: I presently have a place to live Problems where you live: no known problems In the past 12 months, utilities in danger of being shut off: no In past 12 months, lack of transportation kept you from medical appts, meetings, work, or getting things needed for daily living: no In the past 12 mos, have been you worried that your food would run out before you had money to buy more?: never true In the past 12 mos, the food you bought just didn't last and you didn't have money to buy more?: never true Smoking Status: Former smoker Do you use any of these nicotine containing products: None How often do you have a drink containing alcohol: never AUDIT-C Alcohol total score: 0 Non-prescribed substance use: denies use Caffeine: No How often does anyone, including family, friends and others, physically hurt you : never How often does anyone, including family, friends and others, insult or talk down to you: never How often does anyone, including family, friends and others, threaten you with harm: never How often does anyone, including family, friends and others, scream or curse at you: never Meds Home Medications and Allergies Home Medications ?Medication ?Instructions ?Recorded ?Confirmed ?Type folic acid 1 mg tablet 1 mg PO DAILY 08/21/22 12/05/24 History losartan 100 mg tablet 100 mg PO DAILY 08/21/22 12/05/24 History methotrexate sodium 2.5 mg tablet 25 mg PO .Every 7 Days 08/21/22 12/05/24 History rosuvastatin 10 mg tablet 10 mg PO DAILY 08/21/22 12/05/24 History upadacitinib 15 mg tablet,extended 15 mg PO DAILY 08/25/24 12/05/24 History release 24 hr (Rinvoq) omeprazole 20 mg capsule,delayed 20 mg PO BID 12/05/24 12/05/24 History release Allergies Allergy/AdvReac Type Severity Reaction Status Date / Time No Known Drug Allergies Allergy Verified 11/10/24 16:12 Exam Narrative: Exam Narrative: Examined patient in his hospital room. Appears comfortable. No acute distress. Alert and oriented x4. Vision and hearing are adequate. Lungs are clear to auscultation. Heart tones with regular rhythm at this time. Abdomen with active bowel sounds, soft, nontender. Moves all 4 extremities, no focal motor neurologic deficits. Const: Vital Signs, click to edit/add: Vital Signs - 24 hr 12/05/24 10:22 12/05/24 11:02 12/05/24 11:05 Temperature 98.4 F Pulse Rate 68 66 61 Respiratory Rate 16 16 16 Blood Pressure 139/68 117/86 116/84 Pulse Oximetry 97 99 94 Oxygen Delivery Me thod Room Air Nasal Cannula Nasal Cannula Oxygen Flow Rate 3 3 12/05/24 11:10 12/05/24 14:10 12/05/24 14:15 Temperature 96.8 F L Pulse Rate 57 L 55 L 52 L Respiratory Rate 16 12 14 Blood Pressure 126/74 102/67 104/76 Pulse Oximetry 94 94 96 Oxygen Delivery Me thod Nasal Cannula Room Air Oxygen Flow Rate 3 12/05/24 14:20 12/05/24 14:25 12/05/24 14:30 Temperature Pulse Rate 56 L 51 L 49 L Respiratory Rate 14 16 15 Blood Pressure 107/88 123/75 120/80 Pulse Oximetry 97 98 96 Oxygen Delivery Me thod Oxygen Flow Rate 12/05/24 14:35 12/05/24 14:40 12/05/24 14:45 Temperature Pulse Rate 52 L 54 L 52 L Respiratory Rate 14 15 16 Blood Pressure 125/97 H 121/97 H 117/97 H Pulse Oximetry 98 96 96 Oxygen Delivery Me thod Oxygen Flow Rate 12/05/24 14:50 12/05/24 14:55 12/05/24 15:00 Temperature Pulse Rate 56 L 58 L 61 Respiratory Rate 14 15 16 Blood Pressure 129/89 132/105 H 120/94 H Pulse Oximetry 97 97 97 Oxygen Delivery Me thod Oxygen Flow Rate 12/05/24 15:05 12/05/24 15:10 12/05/24 15:15 Temperature 97.0 F L Pulse Rate 58 L 58 L Respiratory Rate 14 12 14 Blood Pressure 133/77 138/76 131/95 H Pulse Oximetry 96 98 97 Oxygen Delivery Me thod Oxygen Flow Rate 12/05/24 15:25 12/05/24 15:45 12/05/24 16:00 Temperature 97.0 F L Pulse Rate 57 L 60 66 Respiratory Rate 16 16 16 Blood Pressure 135/83 140/98 H 123/91 H Pulse Oximetry 97 97 96 Oxygen Delivery Me thod Room Air Room Air Oxygen Flow Rate 12/05/24 16:15 12/05/24 16:30 12/05/24 17:00 Temperature 97.8 F Pulse Rate 68 74 80 Respiratory Rate 16 16 16 Blood Pressure 151/102 H 133/100 H 138/88 Pulse Oximetry 95 95 96 Oxygen Delivery Me thod Room Air Room Air Room Air Oxygen Flow Rate 12/05/24 17:30 02/17/25 18:30 Temperature Pulse Rate 78 90 Respiratory Rate 16 16 Blood Pressure 140/88 H 120/76 Pulse Oximetry 95 97 Oxygen Delivery Me thod Room Air Room Air Oxygen Flow Rate Assessment and Plan Assessment and plan (1) Osteoarthritis of left hip: Problem comment: Severe Status: Acute (2) Status post total hip replacement, left: Status: Acute (3) Rheumatoid arthritis: Problem comment: -well controlled on current regimen including methotrexate, folic acid, upadacitinib Status: Acute (4) Hypertension: Problem comment: -well controlled on current regimen of losartan 100 mg once daily Status: Acute (5) Atrial fibrillation: Problem comment: -not requiring rate control -ordinarily receives rosuvastatin 10 mg once daily, which will be restarted day after surgery on 12/06/2024 Status: Acute (6) Hyperlipidemia: Status: Acute Plan 1. Reviewed impression and plan with patient 2. May resume usual medications tomorrow, 12/06/2024 3. Have completed the hospitalist portion of his discharge orders 4. Patient agreeable with above stated plans and recommendation Total Time Spent Total Time Spent: 45 minutes
[2024-12-06] MEDS: CEFAZOLIN 2 GM in 0.9 % SODIUM CHLORIDE Mini-bag 100 ML IVPB (02:10)
[2024-12-06] MEDS: OXYCODONE 5 MG TABLET PO ×2 (02:10→08:41)
[2024-12-06] MEDS: hydrOXYzine pamoate 25 MG CAPSULE PO ×2 (02:11→08:41)
[2024-12-06 03:00] VITALS: BP 120/81; PULSE 71; RESP 16; TEMP 36.7; O2SAT 96
[2024-12-06] MEDS: ACETAMINOPHEN 500 MG TABLET 1000 MG PO ×2 (05:47→11:02)
[2024-12-06 06:55] LABS: Basophils Percent Auto 0.1 % (0.0-3.0); Hematocrit 36.6 % (37.0-53.0); Immature Granulocytes Pct Auto 0.2 %; Lymphocytes Percent Auto 4.9 % (20-44); Mean Corpuscular HGB Conc 33 gm/dL (32-36); Mean Corpuscular Hemoglobin 33 pg (26-34); Mean Corpuscular Volume 101 fL (80-100); Monocytes Percent Auto 10.7 % (0.0-11.0); Neutrophils Percent Auto 84.1 % (42.0-72.0); Platelet Count* 153 K/uL (140-440); RDW Coefficient of Variation % 12.1 % (11.5-15.5); Red Blood Count 3.63 m/uL (4.30-5.90); White Blood Count* 15.01 K/uL (4.50-11.00)
[2024-12-06 06:57] LABS: Slide Review Reflex No
[2024-12-06 07:00] VITALS: BP 115/72; PULSE 89; RESP 18; TEMP 36.8; O2SAT 95
[2024-12-06 07:17] LABS: Potassium* 4.5 mmol/L (3.6-5.1); Sodium* 135 mmol/L (135-149)
[2024-12-06 07:20] LABS: Creatinine* 0.7 mg/dL (0.5-1.5); Est. Creatinine Clearance* 77.06; Estimated Glomerular Filt Rate 103 ml/min
[2024-12-06 07:21] LABS: Blood Urea Nitrogen* 15 mg/dL (7-30)
[2024-12-06] MEDS: FOLIC ACID 1 MG TABLET PO (08:41)
[2024-12-06] MEDS: RIVAROXABAN 10 MG TABLET PO (08:41)
[2024-12-06] MEDS: SENNOSIDES 1 TAB TABLET 2 TAB PO (08:42)
[2024-12-06] MEDS: LOSARTAN POTASSIUM 50 MG TABLET 100 MG PO (08:42)
--- NOTE | 2024-12-06 09:24 | P.ORPN_ITS ---
Subjective Subjective Date Seen: 12/06/24 Principal diagnosis: Status postop day 1, left total hip arthroplasty - anterior approach Interval history: Patient reports doing okay, pain is mostly tolerable. No acute events over night aside from a difficult night of sleep. Pain managed with scheduled and PRN medications, ice. His pain is typically 7/10 DVT prophylaxis: Rivaroxaban, SCDs, walking. Denies fevers, chills, aches, N/V, CP, SOB/PEREZ, or lightheadedne ss. Passing flatus. Ortho Exam Narrative Exam Narrative: -Patient appears comfortable in that; no apparent acute distress -Alert and oriented times 3 -Operative hip swollen; soft tissues supple; no obvious erythema. Ecchymosis minimal. Warmth appropriate -Ice his directly on skin. -Surgical dressing clean, dry, intact; no obvious drainage, no erythematous streaking peripheral to the bandage -Bilateral calves soft and supple; no significant swelling, edema, tenderness, erythema, discoloration, warmth, or palpable cords -2+ DP/PT pulses, intact dermatomes and myotomes distally (5/5 strength). Mild numbness about the lateral femoral cutaneous nerve distribution. Const Vital Signs, click to edit/add: Vital Signs - 24 hr 12/05/24 10:22 12/05/24 11:02 12/05/24 11:05 Temperature 98.4 F Pulse Rate 68 66 61 Pulse Rate [Right Pulse Oximeter] Respiratory Rate 16 16 16 Blood Pressure 139/68 117/86 116/84 Blood Pressure [Left Arm] Pulse Oximetry 97 99 94 Oxygen Delivery Method Room Air Nasal Cannula Nasal Cannula Oxygen Flow Rate 3 3 12/05/24 11:10 12/05/24 14:10 12/05/24 14:15 Temperature 96.8 F L Pulse Rate 57 L 55 L 52 L Pulse Rate [Right Pulse Oximeter] Respiratory Rate 16 12 14 Blood Pressure 126/74 102/67 104/76 Blood Pressure [Left Arm] Pulse Oximetry 94 94 96 Oxygen Delivery Method Nasal Cannula Room Air Oxygen Flow Rate 3 12/05/24 14:20 12/05/24 14:25 12/05/24 14:30 Temperature Pulse Rate 56 L 51 L 49 L Pulse Rate [Right Pulse Oximeter] Respiratory Rate 14 16 15 Blood Pressure 107/88 123/75 120/80 Blood Pressure [Left Arm] Pulse Oximetry 97 98 96 Oxygen Delivery Method Oxygen Flow Rate 12/05/24 14:35 12/05/24 14:40 12/05/24 14:45 Temperature Pulse Rate 52 L 54 L 52 L Pulse Rate [Right Pulse Oximeter] Respiratory Rate 14 15 16 Blood Pressure 125/97 H 121/97 H 117/97 H Blood Pressure [Left Arm] Pulse Oximetry 98 96 96 Oxygen Delivery Method Oxygen Flow Rate 12/05/24 14:50 12/05/24 14:55 12/05/24 15:00 Temperature Pulse Rate 56 L 58 L 61 Pulse Rate [Right Pulse Oximeter] Respiratory Rate 14 15 16 Blood Pressure 129/89 132/105 H 120/94 H Blood Pressure [Left Arm] Pulse Oximetry 97 97 97 Oxygen Delivery Method Oxygen Flow Rate 12/05/24 15:05 12/05/24 15:10 12/05/24 15:15 Temperature 97.0 F L Pulse Rate 58 L 58 L Pulse Rate [Right Pulse Oximeter] Respiratory Rate 14 12 14 Blood Pressure 133/77 138/76 131/95 H Blood Pressure [Left Arm] Pulse Oximetry 96 98 97 Oxygen Delivery Method Oxygen Flow Rate 12/05/24 15:25 12/05/24 15:45 12/05/24 16:00 Temperature 97.0 F L Pulse Rate 57 L 60 66 Pulse Rate [Right Pulse Oximeter] Respiratory Rate 16 16 16 Blood Pressure 135/83 140/98 H 123/91 H Blood Pressure [Left Arm] Pulse Oximetry 97 97 96 Oxygen Delivery Method Room Air Room Air Oxygen Flow Rate 12/05/24 16:15 12/05/24 16:30 12/05/24 17:00 Temperature 97.8 F Pulse Rate 68 74 80 Pulse Rate [Right Pulse Oximeter] Respiratory Rate 16 16 16 Blood Pressure 151/102 H 133/100 H 138/88 Blood Pressure [Left Arm] Pulse Oximetry 95 95 96 Oxygen Delivery Method Room Air Room Air Room Air Oxygen Flow Rate 12/05/24 17:30 12/05/24 18:30 12/05/24 19:30 Temperature Pulse Rate 78 90 78 Pulse Rate [Right Pulse Oximeter] Respiratory Rate 16 16 16 Blood Pressure 140/88 H 120/76 124/74 Blood Pressure [Left Arm] Pulse Oximetry 95 97 96 Oxygen Delivery Method Room Air Room Air Room Air Oxygen Flow Rate 12/05/24 20:30 12/05/24 21:30 12/05/24 23:00 Temperature 98.3 F 98.1 F 98.4 F Pulse Rate 75 66 Pulse Rate [Right Pulse Oximeter] 67 Respiratory Rate 16 16 18 Blood Pressure 115/72 123/84 Blood Pressure [Left Arm] 126/77 Pulse Oximetry 97 97 94 Oxygen Delivery Method Room Air Room Air Room Air Oxygen Flow Rate 12/05/24 23:00 12/06/24 03:00 Temperature 98.1 F Pulse Rate Pulse Rate [Right Pulse Oximeter] 71 Respiratory Rate 18 16 Blood Pressure Blood Pressure [Left Arm] 120/81 Pulse Oximetry 94 96 Oxygen Delivery Method Room Air Room Air Oxygen Flow Rate Assessment and Plan Assessment and plan (1) Osteoarthritis of left hip: Problem details: Severe Status: Acute (2) Status post total hip replacement, left: Problem details: Date of surgery 12/05/2024, Dr. Mcfadden Status: Acute (3) Rheumatoid arthritis: Problem details: -well controlled on current regimen including methotrexate, folic acid, upadacitinib. Status: Acute (4) Hypertension: Problem details: -well controlled on current regimen of losartan 100 mg once daily Status: Acute (5) Atrial fibrillation: Problem details: -not requiring rate control -ordinarily receives rosuvastatin 10 mg once daily, which will be restarted day after surgery on 12/06/2024 Status: Acute (6) Hyperlipidemia: Status: Acute Plan - Complete 23 hour perioperative antibiotics. - PT/OT consult for education and assistance. - Social work consult for discharge planning - Prescribed analgesics as needed - DVT prophylaxis: Rivaroxaban, walking, and SCDs - Anticipation is for discharge to home with family/friends today 12/06/2024 if the patient remains medically stable, pain is controlled, and they are safe with mobilization.
--- NOTE | 2024-12-06 11:10 | PC.NURSE ---
Pt alert, oriented and vitally stable. Pt rates pain 7/10 throughout shift, prn oxy given. Pt moves via SBA, tolerates well. Dressing C/D/I, bruising noted around site. Pt in bed, call light within reach. ?
--- NOTE | 2024-12-06 11:33 | PC.NURSE ---
Discharge home with . Patient verbalized instructions. All belongings sent home. All questions answered.
== END 2024-12-06 11:30 | disposition home or self-care (01) ==
LOC: OR 09:38 → MEDSURG 09:41
PROVIDERS: PCP Internal Medicine; Visit Provider Orthopaedic Surgery Sports Medicine
PROC: (CPT 27130; principal; 2024-12-05 11:15)
DX: M16.12 Unilateral primary osteoarthritis, left hip (principal); G89.18 Other acute postprocedural pain; I10 Essential (primary) hypertension; M06.9 Rheumatoid arthritis, unspecified; I48.91 Unspecified atrial fibrillation; E78.5 Hyperlipidemia, unspecified; Z79.899 Other long term (current) drug therapy; L40.50 Arthropathic psoriasis, unspecified; Z85.828 Personal history of other malignant neoplasm of skin; Z85.820 Personal history of malignant melanoma of skin; Z79.631 Long term (current) use of antimetabolite agent
CPT/HCPCS: 27130; 01214; 36415; 64450; 73501; 76000; 76942; 82565; 84132; 84295; 84520; 85025; 86850; 86900; 86901; 97110; 97116; 97161; 97165; 97535; A9270; C1776; J0690; J1100; J1171; J2250; J2371; J2405; J2704; J2795; J3010; J7120

== ENCOUNTER 2025-03-01 13:45 | Outpatient (RCR) | payer BC, SELFPAY | END 2025-04-19 12:19 | disposition home or self-care (01) | PROVIDERS: PCP Internal Medicine; Visit Provider Orthopaedic Surgery Sports Medicine | DX: M16.12 Unilateral primary osteoarthritis, left hip (principal); Z96.642 Presence of left artificial hip joint; Z51.89 Encounter for other specified aftercare | CPT/HCPCS: 97110; 97140; 97161; 97164; 97530; 97535 ==

== ENCOUNTER 2025-03-22 14:53 | Outpatient (CLI) | payer BC, SELFPAY ==
--- NOTE | 2025-03-22 15:30 | MR_ITS ---
[address] [address] Phone:?[phone] Fax:?[phone] Referring Physician Information: Almas Mcfadden M.D. [id number] [facility] [address] Phone:?[phone] Fax:?[phone] Patient:Bailey Tello D.O.B:?1960 Sex:?Male Phone:?[phone] [facility] MRN:?[id number] Exam Date:?03/22/2025 EXAM: MR LUMBAR SPINE WITHOUT CONTRAST 1.5T CLINICAL INFORMATION: Low back/hip pain. TECHNICAL INFORMATION: T1, T2 and STIR sagittal sections through the lumbar spine with T1/T2 FSE stacked axial sections and T1/T2 FSE angled axial sections through L5-S1. COMPARISON IMAGES: X-rays dated 03/14/2025. INTERPRETATION:?Segmentation and Alignment: Lordotic alignment of five lumbar vertebrae with a mild mid lumbar curve to the right and a mild upper lumbar curve to the left. Sacrum and Sacroiliac joints:?Upper sacrum and sacroiliac joints unremarkable. L5-S1: Advanced disc degeneration with chronic right L5 spondylolysis, a 4-5 mm right rotatory spondylolisthesis and mild narrowing of the neural foramina. L4-5: Advanced disc degeneration with moderate bilateral facet arthropathy and mild rotatory spondylolisthesis on the left. Moderate right and moderately severe left foraminal stenosis with left L4 neural impingement. L3-4: Advanced disc degeneration with moderate narrowing of the left subarticular recess. Moderate left foraminal stenosis. Facet joints unremarkable. L2-3: Advanced disc degeneration with moderate central/left greater than right subarticular recess stenosis. Moderate left foraminal stenosis. Facet joints unremarkable. L1-2 and T12-L1: Moderate to advanced disc degeneration with marked disc space narrowing and mild foraminal stenosis on the right H level. T11-12: Intervertebral disc and facet joints unremarkable. No stenosis or impingement. Conus: Normal signal intensity within the conus medullaris. No intradural mass or arachnoidal adhesions. Osseous structures: Sagittal STIR images show prominent discogenic marrow edema on the left at L4-5 and moderate discogenic marrow edema on the right at T12-L1. A 13 mm low signal intensity lesion within the L1 vertebral bodies consistent with an atypical hemangioma. No fracture or avulsion. No osteolytic or destructive bone lesion. Soft tissues:?No paraspinous soft tissue mass or fluid collection. CONCLUSION: Mild lumbar scoliosis with significant findings as follows: 1. Moderate to advanced diffuse lumbar disc degeneration with discogenic marrow edema on the left at L4-5 and right at T12-L1. 2. Moderate right and moderately severe left foraminal stenosis at L4-5 with minimal spondylolisthesis and left L4 neural impingement. 3. Moderate subarticular recess and foraminal stenosis on the left at L3-4. 4. Moderate central/bilateral subarticular recess stenosis and moderate left foraminal stenosis at L2-3. Electronically signed on 03/23/2025 12:45:00 PM by Evan Oviedo M.D.
== END 2025-03-22 14:54 | disposition home or self-care (01) ==
LOC: MRI 14:54
PROVIDERS: PCP Internal Medicine; Visit Provider Orthopaedic Surgery Sports Medicine
DX: M54.9 Dorsalgia, unspecified (principal); M51.369 Other intervertebral disc degeneration, lumbar region without mention of lumbar back pain or lower extremity pain; M48.061 Spinal stenosis, lumbar region without neurogenic claudication; Z96.642 Presence of left artificial hip joint
CPT/HCPCS: 72148

== ENCOUNTER 2025-06-16 16:35 | Outpatient (CLI) | payer BC, SELFPAY ==
--- NOTE | 2025-06-16 16:45 | CRLHL7_ITS ---
For Patients: As a result of the Century Cures Act, medical imaging exams and procedure reports are released immediately into your electronic medical record. You may view this report before your referring provider. If you have questions, please contact your health care provider. INDICATION: Left lower quadrant pain TECHNIQUE: Volumetric helical scanning of the abdomen and pelvis was performed with 94 cc of Isovue 370 contrast material IV. Coronal and sagittal reconstructions were obtained. COMPARISON: Chest/abdomen/pelvis CT of 12/30/2016 FINDINGS: There is no evidence of bowel obstruction or inflammation. There is a moderate amount of stool in the colon. The liver is normal in size, shape and attenuation. The bile ducts are within normal limits. The spleen, adrenal glands and pancreas are negative. The kidneys are unremarkable except for a 3 cm right renal parapelvic cyst. No lymphadenopathy is evident. No free fluid is demonstrated. Prostate is grossly negative. Interval postop changes of inguinal hernia repairs are demonstrated bilaterally. Hip arthroplasties of also been performed bilaterally in the interval and produce considerable artifact in the lower pelvis. The lung bases are essentially clear, and heart size is normal. IMPRESSION: 1. Possible constipation. 2. Interval inguinal hernia repairs bilaterally and THR bilaterally. Please note that all CT scans at this facility use dose modulation, iterative reconstruction, and/or weight-based dosing when appropriate to reduce radiation dose to as low as reasonably achievable. Dictated by Evan Schultz MD @ 06/20/2025 6:07:23 AM (Electronically Signed)
[2025-06-16 17:19] LABS: Creatinine* 0.8 mg/dL (0.5-1.5); Estimated Glomerular Filt Rate 98 ml/min
== END 2025-06-16 16:36 | disposition home or self-care (01) ==
LOC: CT 16:35
PROVIDERS: PCP Internal Medicine; Visit Provider Internal Medicine
DX: R10.32 Left lower quadrant pain (principal)
CPT/HCPCS: 36415; 74177; 82565; Q9967

== ENCOUNTER 2025-09-27 08:29 | Outpatient (CLI) | payer BC, SELFPAY | END 2025-09-27 08:30 | disposition home or self-care (01) | PROVIDERS: PCP Internal Medicine; Visit Provider Internal Medicine | DX: I10 Essential (primary) hypertension (principal) | CPT/HCPCS: 80053; 80061; G0103 ==